=== PATIENT | male | born 1955 | race Caucasian/White ===

== ENCOUNTER 2018-04-06 05:45 | Day surgery (SDC) | payer BC, OTHER ==
[~2018-04-06] VITALS: Ht 165.1 cm; Wt 71.9 kg
[~2018-04-06 05:45] MED LIST: NO HOME MEDS
[2018-04-06 06:44] VITALS: Ht 165.1 cm; Wt 71.9 kg
[2018-04-06] MEDS ORDERED: PAIN MED (06:48)
[2018-04-06] MEDS ORDERED: ATORVASTATIN (06:48)
[2018-04-06 07:02] VITALS: BP 110/73; PULSE 50; RESP 12
[2018-04-06 08:07] VITALS: BP 113/72; PULSE 57; RESP 18
== END 2018-04-06 08:19 | disposition home or self-care (01) ==
LOC: GIL 05:45
PROVIDERS: ATTEND Internal Medicine Gastroenterology
DX: K44.9 Diaphragmatic hernia without obstruction or gangrene (principal); K21.0 Gastro-esophageal reflux disease with esophagitis; K29.60 Other gastritis without bleeding; E78.5 Hyperlipidemia, unspecified
CPT/HCPCS: 43239; 88305; 88312; Z7610

== ENCOUNTER 2018-05-14 05:57 | Day surgery (SDC) | payer BC ==
[~2018-05-14] VITALS: Ht 165.1 cm; Wt 71.3 kg
[~2018-05-14 05:57] MED LIST changes: +ATORVASTATIN; -NO HOME MEDS; +PAIN MED
[2018-05-14 07:19] VITALS: Ht 165.1 cm; Wt 71.3 kg
[2018-05-14] MEDS ORDERED: IBUPROFEN (07:37)
[2018-05-14 07:48] VITALS: BP 113/66; PULSE 56; RESP 14
[2018-05-14] MEDS ORDERED: MIDAZOLAM 1 MG/ML 2 ML INJ ONE ×2 (08:48)
[2018-05-14] MEDS ORDERED: FENTAnyl 50 MCG/ML VIAL ONE (08:48)
[2018-05-14 09:05] VITALS: BP 105/69; PULSE 62; RESP 12
== END 2018-05-14 10:48 | disposition home or self-care (01) ==
LOC: GIL 05:57
PROVIDERS: ATTEND Internal Medicine Gastroenterology
DX: Z12.11 Encounter for screening for malignant neoplasm of colon (principal); K64.8 Other hemorrhoids; K57.30 Diverticulosis of large intestine without perforation or abscess without bleeding
CPT/HCPCS: 45380; J2250; J3010; Z7610